=== PATIENT | male | born 1940 | race Caucasian/White ===

== ENCOUNTER 2017-05-18 11:22 | Observation (INO) ==
--- NOTE | 2017-05-18 08:46 | History & Physical Report ---
Date of Encounter: 05/18/17 Time of Encounter: 08:46 24 Hour HP Update - Instructions Instructions: If the History and Physical is less than 30 days old and was completed prior to A.M. admission and or procedure and has NOT been updated on calendar day of procedure please complete this update prior to performing procedure. - Update Patient reports changes in Medical Condition: No Changes in examination, assessment, or condition: No Changes in Medication: No Preop tests/diagnostics Reviewed: Yes Surgery Remains Indicated: Yes Consent for Planned Operative Procedure(s) Verified: Yes
[2017-05-18] MEDS ORDERED: Ringers Solution, Lactated 500 ML IVC SCH (12:00)
[2017-05-18 12:15] LABS: Basophils # 0.1 K/mcL (0.0-0.2); Basophils % 1.3 %; Eosinophils # 0.5 K/mcL (0.0-0.6); Eosinophils % 6.5 %; Hemoglobin 14.4 g/dL (12.9-16.9); Immature Granulocytes % 0.4 % (0-4); Lymphocytes # 2.4 K/mcL (0.6-4.6); Lymphocytes % 30.5 %; Mean Corpuscular HGB Conc 31.3 g/dL (31.6-35.5); Mean Corpuscular Volume 83.2 fL (83.0-100.0); Mean Platelet Volume 9.1 fL (9.4-12.4); Monocytes # 0.7 K/mcL (0.0-1.3); Monocytes % 8.1 %; Neutrophils # 4.3 K/mcL (1.6-8.9); Platelet Count 276 K/mcL (140-400); Red Blood Count 5.53 M/mcL (4.19-5.50); Red Cell Distribution Width 15.6 % (11.5-14.5); Segmented Neutrophils % 53.2 %
[2017-05-18 12:23] LABS: Prothrombin Time 11.1 Seconds (9.4-12.1)
[2017-05-18] MEDS ORDERED: Naloxone 0.4 MG/ML INJ IVP PRN (13:57)
[2017-05-18] MEDS ORDERED: *HR* HYDROcodone/Acet 5/325 mg TABLET PO PRN (14:52)
[2017-05-18] MEDS ORDERED: Acetaminophen 325 MG TABLET PO PRN (14:52)
--- NOTE | 2017-05-18 15:28 | Internal Med History&Physical ---
<Jennifer Padilla - Last Filed: 05/18/17 15:07> Date of Encounter: 05/18/17 Time of Encounter: 15:08 Assessment and Plan (1) Pneumothorax of right lung after biopsy Current visit: Yes Status: Acute Pt presents with iatragenic pneumothorax following lung biopsy by IR. Several attempts at needle decompression were unsuccessful, Chest tube placed and attached to atrium. Patient currently asymptomatic complaining only of back pain. Hypertensive (200 systolic) upon arrival to room without history of htn. Patient received 10mg hydralazine and BP responded, lowered to 170's systolic. Pulmonology consulted by IR, appreciate their recommendations with management of chest tube. Plan: -Continue with chest tube management per protocol, currently to continuous wall suction -Dressing managment at CT insertion site -AM labs -Vitals signs Q4hr -CXR in AM -hydralazine 10mg q6hr prn systolic BP >160 -DVT prophylaxis: SCDS -Regular diet -pulmonology consult (2) Lung nodule Current visit: Yes Status: Acute Irregular 2.5x1.7cm nodule vs opacity in the posterior basal segment of the RLL on LCS chest CT 05/03/17 Biopsy pathology pending (3) PVD (peripheral vascular disease) Current visit: Yes Status: Acute s/p left fem-pop bypass 2006, right femoral-tibial insitu bypass 08/01/15 (4) Hyperlipidemia Current visit: No Status: Chronic Continue statin Qualifiers: Hyperlipidemia type: unspecified Qualified Code(s): E78.5 - Hyperlipidemia , unspecified (5) BPH (benign prostatic hyperplasia) Current visit: Yes Status: Acute s/p greenlight procedure 10/07. Qualifiers: Lower urinary tract symptom presence: unspecified whether lower urinary tract symptoms present Qualified Code(s): N40.0 - Benign prostatic hyperplasia without lower urinary tract symptoms (6) S/P femoral-tibial bypass Current visit: No Status: Chronic (7) DVT prophylaxis Current visit: Yes Status: Acute SCDs Internal Medicine - H&P: HPI Chief complaint: Pneumothorax Admitted From: Direct Admit Plans for Post Hospital Care: Home History of present illness: Mr. Herrera is a 77 year old male with a past medical history of hyperlipidemia , PVD, BPH, squamous cell skin cancer and aortic stenosis with valve replacement (bovine) who was admitted to the hospitalist service secondary to iatragenic pneumothorax. The patient had a free lung cancer screening CT 05/03/17 , which demonstrated a new 2.5x1.7cm nodule vs opacity in the posterior basal segment of the RLL. He was referred to Dr. Johnson who sent him to IR for a nodule biopsy. The patient was in IR this morning when he developed a pneumothorax during the lung biopsy, which was unable to be resolved after several attempts and needle decompression. A chest tube was subsequently placed by IR. Pulmonology was consulted, who recommended admission to the hospitalist service with pulmonology consult. The patient states that he has been in good health with no recent illness. He notes some back pain since the procedure, and states he feels better if he sits straight up. He denies DOWLING, dizziness, visual changes, fever, chills, ear pain, sore throat, rhinorrea, cough, wheezing , sob, palpitations, cp, abd pain, n/v/d/c, numbness/tingling, rash, dysuria. He does have a history of smoking. He notes that he cut back in September (had been smoking up to 1.5 PPD) to about 1 cigarette daily. He does have a 55 pack year history. Past Med Surg Social Fam HX - Past Medical History Attestation: Yes The following information was validated with the patient. Source: patient, old records reviewed Medical history: hyperlipidemia, peripheral artery disease, valvular heart disease (aortic stenosis with replacement(bovine)), other (squamous skin cancer) Psychiatric history: no psych history - Past Surgical History Surgical History: heart valve replacement (Aortic (bovine) 2005), knee replacement (left 07/07), LE Bypass (left fem-pop 2006; right fem-tib insitu ), other (greenlight prostate 10/07, tonsilectomy) - Social History Smoking Status: Former smoker Smokeless Tobacco Status: No Alcohol use: none Drug use: none - Family History Mother Race: Family Member Ethnicity: Non- Living Status: Age at : 90 Hx Family Neurologic Disorders: Yes (dementia) Father Race: Family Member Ethnicity: Non- Living Status: Age at : 79 Hx Family Cardiac Disorders: Yes (CAD) Internal Medicine - H&P: Meds Atorvastatin Calcium [Lipitor] 20 mg PO HS 08/01/15 [History] Aspirin Enteric Coated [Aspirin EC] 325 mg PO DAILY #30 tablet. 08/02/15 [Rx] Clopidogrel [Plavix] 75 mg PO DAILY #30 tablet 08/02/15 [Rx] Docusate [Colace] 100 mg PO BID #30 capsule 08/02/15 [Rx] Hydrocodone/Acetaminophen [[place] 5-325 Tablet] 1 tab PO Q4H PRN #39 tab [Rx] 3 Allergy/AdvReac Type Severity Reaction Status Date / Time No Known Allergies Allergy Unverified 07/25/15 12:04 All Systems PM: A 10-system review of systems was performed and is negative for pertinent findings except as documented above in the HPI. - Constitutional Vitals: Temp Pulse Resp BP Pulse Ox 98.6 F 65 16 178/81 97 05/18/17 14:55 05/18/17 14:55 05/18/17 14:55 05/18/17 14:55 05/18/17 14:55 General appearance: Present: cooperative, A&O X 3, pleasant, no acute distress, answers questions appropriately - Head Head exam: Present: atraumatic, normocephalic - Neck Neck exam general surgery: Present: supple, trachea midline. Absent: lymphadenopathy - Respiratory Respiratory exam: Present: CTAB. Absent: accessory muscle use, rales, rhonchi, wheezes Additional comments: chest tube in place lower posterior chest, dressed, clean, dry - Cardiovascular Cardiovascular exam: Present: RRR, +S1, +S2. Absent: diastolic murmur, gallop, rubs, systolic murmur - GI/Abdominal GI/Abdominal exam: Present: normal bowel sounds, soft, no peritoneal signs. Absent: distended, tenderness - Extremities Exam Extremities exam: Present: normal capillary refill, warm, radial pulses palpable and symmetrical. Absent: calf tenderness, cyanotic, pedal edema - Back Exam Back exam: Present: tenderness (b/l lower back and L4/L5). Absent: CVA tenderness (L), CVA tenderness (R) - Neurological Exam Neurological exam: Present: CN II-XII intact, oriented X3, no focal deficits. Absent: pronater drift, facial droop, speech deficit - Psychiatric Psychiatric exam: Present: normal affect, normal mood - Skin Skin exam: Present: dry, intact, normal color, warm. Absent: cyanosis, erythema , rash Internal Med - H&P Results - Labs CBC & Chem 7: 05/18/17 11:49 Labs: Short CBC 05/18/17 Range/Units 11:49 WBC 8.0 (4.3-11.1) K/mcL Hgb 14.4 (12.9-16.9) g/dL Hct 46.0 (37.5-50.1) % Plt Count 276 (140-400) K/mcL Neutrophils # 4.3 (1.6-8.9) K/mcL - Impressions ITS Impressions Lung Biopsy CT 05/18/17 00:00 IMPRESSION: Successful CT guided core biopsy right lung mass. D/ / Joey Sanchez MD / Joey Sanchez MD Interpreting Provider: Joey Sanchez MD Needle Aspiration CT 05/18/17 00:00 IMPRESSION: Successful CT guided placement of a right chest tube D/ / Joey Sanchez MD / Joey Sanchez MD Interpreting Provider: Joey Sanchez MD <Rachele Lynch - Last Filed: 05/18/17 17:38> Date of Encounter: 05/18/17 Internal Medicine - H&P: HPI History of present illness: Mr. Herrera is a 77 year old male All Systems PM: A 10-system review of systems was performed and is negative for pertinent findings except as documented above in the HPI. - Constitutional Vitals: Temp Pulse Resp BP Pulse Ox 98.6 F 65 16 178/81 97 05/18/17 14:55 05/18/17 14:55 05/18/17 14:55 05/18/17 14:55 05/18/17 14:55 Internal Med - H&P Results - Labs CBC & Chem 7: 05/18/17 11:49 05/18/17 16:15 Labs: Short CBC 05/18/17 Range/Units 11:49 WBC 8.0 (4.3-11.1) K/mcL Hgb 14.4 (12.9-16.9) g/dL Hct 46.0 (37.5-50.1) % Plt Count 276 (140-400) K/mcL Neutrophils # 4.3 (1.6-8.9) K/mcL BMP 05/18/17 16:15 Sodium 133 L Potassium 4.1 Chloride 102 Carbon Dioxide 25 BUN 9 Creatinine 0.96 Glucose 83 Calcium 9.4 - Impressions ITS Impressions Lung Biopsy CT 05/18/17 00:00 IMPRESSION: Successful CT guided core biopsy right lung mass. D/ / Joey Sanchez MD / Joey Sanchez MD Interpreting Provider: Joey Sanchez MD Needle Aspiration CT 05/18/17 00:00 IMPRESSION: Successful CT guided placement of a right chest tube D/ / Joey Sanchez MD / Joey Sanchez MD Interpreting Provider: Joey Sanchez MD - Attending Attestation Pt seen and examined at bedside. Resting comfortably in bed. Denies any discomfort at this time. Admitted for new onset pneumothorax requiring chest tube placement. Case was discussed with the resident physician Dr. Vicky Padilla, I agree with her documented findings, assessment, and plan.
--- NOTE | 2017-05-18 16:08 | Pulmonology Consult Note ---
Date of Encounter: 05/18/17 Time of Encounter: 16:08 Assessment and Plan (1) Pneumothorax of right lung after biopsy Current Visit: Yes Status: Acute Assessment was chest tube placement by interventional radiology currently without any relief I would keep to suction overnight will come and evaluate in the morning after repeat chest x-ray likely clamp after that and removal later in the morning (2) Tobacco abuse counseling Current Visit: Yes Status: Acute I had a 5-7 minute discussion with the patient about smoking cessation. Problems with continued smoking including respiratory, cardiovascular and oncological problems were discussed. Advice on smoking cessation was reiterated including methods of quitting and different medicines and support systems available for smoking cessation was discussed. (3) Lung nodule Current Visit: Yes Status: Acute This is concerning for primary lung malignancy we will follow up on biopsy results likely as outpatient basis of note he does have a PET CT scheduled tomorrow around 2:00pm he should be able to make this based upon my initial assessment History of Present Illness Consult date: 05/18/17 Requesting physician: [place] Reason for consult: pneumothorax Chief complaint: Shortness of breath History of present illness: This is 77-year-old gentleman with a past medical history of tobacco abuse and peripheral vascular disease who was brought to the interventional radiology suite today for CT-guided transthoracic biopsy. He has a 2.5 cm right lower lobe lesion that is concerning for primary lung malignancy giving underlying smoking history and age. Procedure was unfortunate complicated by a iatrogenic pneumothorax status post smallbore chest tube placement. In speaking with the patient at the bedside he is in no distress. He says he denies shortness of breath chest pain cough fever or chills. Of note he is to have a PET/CT scan performed tomorrow for further evaluation/staging of this potential neoplastic lesion. He started smoking at age 18 smoked about a pack a day and he fortunately quit almost completely over this year he says he smokes 1 cigarette or so a week. I reminded him the importance of remaining completely tobacco free. He denies dyspnea on exertion with activities of daily living. Does not use any inhaler therapy. No personal or family history of lung malignancy. 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 No exotic pets or sick contacts or recent travel Past Med Surg Social Fam HX - Past Medical History Medical history: hyperlipidemia, peripheral artery disease, valvular heart disease (aortic stenosis with replacement(bovine)), other (squamous skin cancer) Psychiatric history: no psych history - Past Surgical History Surgical History: heart valve replacement (Aortic (bovine) 2005), knee replacement (left 07/07), LE Bypass (left fem-pop 2006; right fem-tib insitu ), other (greenlight prostate 10/07, tonsilectomy) - Social History Smoking Status: Former smoker Smokeless Tobacco Status: No Alcohol use: none Drug use: none - Family History Mother Race: Family Member Ethnicity: Non- Living Status: Age at : 90 Hx Family Neurologic Disorders: Yes (dementia) Father Race: Family Member Ethnicity: Non- Living Status: Age at : 79 Hx Family Cardiac Disorders: Yes (CAD) Medications and Allergies Atorvastatin Calcium [Lipitor] 20 mg PO HS 08/01/15 [History] Aspirin Enteric Coated [Aspirin EC] 325 mg PO DAILY #30 tablet. 08/02/15 [Rx] Clopidogrel [Plavix] 75 mg PO DAILY #30 tablet 08/02/15 [Rx] Docusate [Colace] 100 mg PO BID #30 capsule 08/02/15 [Rx] Hydrocodone/Acetaminophen [[place] 5-325 Tablet] 1 tab PO Q4H PRN #39 tab [Rx] 3 Allergy/AdvReac Type Severity Reaction Status Date / Time No Known Allergies Allergy Unverified 07/25/15 12:04 All Systems: A 10-system review of systems was performed and is negative for pertinent findings except as documented above in the HPI. Physical Examination Vital Signs: Vital Signs, Last 4 Hours Temp Pulse Resp BP Pulse Ox 05/18/17 14:55 98.6 F 65 16 178/81 97 05/18/17 14:09 97.8 F 65 17 205/85 98 05/18/17 13:00 57 12 168/86 100 General appearance: no acute distress Eyes: nonicteric ENT: oropharynx moist Neck: supple Auscultation: right: clear, bilateral: other (Left chest tube in satisfactory position dressing clean dry and intact no air leak noted) Cardiovascular: regular rate and rhythm Gastrointestinal: normoactive bowel sounds Integumentary: normal Extremities: no cyanosis, no edema, no clubbing Musculoskeletal: no deformities normal mental status, non-focal exam mood appropriate Results - Laboratory Findings CBC and BMP: 05/18/17 11:49 PT/INR, D-dimer PT 11.1 Seconds (9.4-12.1) 05/18/17 11:49 Abnormal lab findings: Abnormal lab results RBC 5.53 M/mcL (4.19-5.50) H 05/18/17 11:49 MCH 26.0 pg (28.0-33.3) L 05/18/17 11:49 MCHC 31.3 g/dL (31.6-35.5) L 05/18/17 11:49 RDW 15.6 % (11.5-14.5) H 05/18/17 11:49 MPV 9.1 fL (9.4-12.4) L 05/18/17 11:49 - Diagnostic Findings Chest x-ray: report reviewed, image reviewed CT scan - chest: report reviewed, image reviewed - Clinical Findings Intake & Output: Intake & Output 05/18/17 05/18/17 05/18/17 07:59 15:59 23:59 Intake Total 0 / 0 Balance 0 / 0 Weight 72.575 kg Consult Discharge Plan - Plan Referrals: NONE,PCP [Primary Care Provider] -
[2017-05-18 16:53] LABS: BUN/Creatinine Ratio 9 (6-26); Blood Urea Nitrogen 9 mg/dL (8-26); Carbon Dioxide 25 mEq/L (19-29); Chloride 102 mEq/L (98-109); Potassium 4.1 mEq/L (3.5-4.5); Sodium 133 mEq/L (136-145); eGFR For African Americans > 60 (> 60)
[2017-05-18 16:54] LABS: Calcium 9.4 mg/dL (8.6-10.8); Glucose 83 mg/dL (70-99); Osmolality,Calculated 274 (280-300); eGFR For Non-African Americans > 60 (> 60)
[2017-05-19 05:45] LABS: Hematocrit 40.2 % (37.5-50.1); Mean Corpuscular HGB Conc 32.3 g/dL (31.6-35.5); Mean Corpuscular Hemoglobin 26.4 pg (28.0-33.3); Mean Corpuscular Volume 81.5 fL (83.0-100.0); Mean Platelet Volume 9.4 fL (9.4-12.4); Platelet Count 225 K/mcL (140-400); Red Blood Count 4.93 M/mcL (4.19-5.50); Red Cell Distribution Width 15.7 % (11.5-14.5)
[2017-05-19 06:02] LABS: BUN/Creatinine Ratio 10 (6-26); Blood Urea Nitrogen 10 mg/dL (8-26); Calcium 8.7 mg/dL (8.6-10.8); Chloride 104 mEq/L (98-109); Glucose 73 mg/dL (70-99); Osmolality,Calculated 276 (280-300); Potassium 4.3 mEq/L (3.5-4.5); Sodium 134 mEq/L (136-145); eGFR For African Americans > 60 (> 60); eGFR For Non-African Americans > 60 (> 60)
[2017-05-19 06:26] LABS: Carbon Dioxide 23 mEq/L (19-29)
--- NOTE | 2017-05-19 07:25 | Event Note ---
Date of Encounter: 05/19/17 Time of Encounter: 07:22 I came to evaluate the patient after repeat imaging for f/u of chest tube placement for PTx. Order was given overnight to clamp the chest tube by radiology per RN at [facility]. It appears that there are multiple physicians managing chest tube on this patient and given interventional radiology has placed a chest tube and given additional orders for this management pulmonary will sign off to avoid confusion please reconsult if input on mngt of chest tube requested
--- NOTE | 2017-05-19 10:16 | Discharge Summary ---
<Rex Sloan Last Filed: 05/19/17 16:19> Date of Encounter: 05/19/17 Time of Encounter: 10:09 - Discharge Diagnosis (1) Pneumothorax of right lung after biopsy Priority: Primary Status: Acute (2) Lung nodule Priority: Secondary Status: Acute (3) Tobacco abuse counseling Priority: Secondary Status: Acute - Discharge Medications Home Medications: Atorvastatin Calcium [Lipitor] 20 mg PO HS 05/18/17 [History] Fluticasone Propionate Nasal [Flonase] 2 spr NS DAILY 05/18/17 [History] Ipratropium [place] 1 spr NS DAILY 05/18/17 [History] Allergies/Adverse Reactions: 3 Allergy/AdvReac Type Severity Reaction Status Date / Time No Known Allergies Allergy Unverified 07/25/15 12:04 Procedures/tests Complete & Pending: Procedures Performed prior 72 hours Category Date Time Status CT biopsy lung RT [CT] Routine Cat Scan 05/18/[address] guided asp with tube [CT] Routine Cat Scan 05/18/17 Completed Date of admission: 05/18/17 14:20 Primary care physician: PCP NONE Consults: 05/18/17 15:02 Consult to Physician [CONS] Routine Consulting Provider: Shamar Zendejas Reason for Consult: Pneumothorax, Chest tube in place, contacted by IR Time Notified: 15:03 Call Completed: Yes Discharging clinician: Rex Sloan Anticipated date of discharge: 05/19/17 - Patient Status Disposition: Home, Self-Care Functional capacity at discharge: independent ambulation Overall status at discharge: patient is back to baseline - Discharge Instructions Instructions: Traumatic Pneumothorax (DC), How to Stop Smoking (DC) Follow Up With: NONE,PCP [Primary Care Provider] - 05/25/17 10:00 am (Please follow up at [facility] with Saavedra. [phone]. ) Additional Instructions: Go to your PET scan this afternoon - it is very important Follow-up with your primary care provider Return to the hospital if your breathing worsens or symptoms return - Diet and Activity Activity: increase activity as tolerated Diet: advance to your usual diet Interval History: Patient seen and examined. Reports he is feeling well with no complaints. Denies chest pain, dyspnea, cough, N/V/D, dysuria, or leg pain/swelling. Hospital course: Mr. Herrera is a 77 year old male with PMH of tobacco abuse and peripheral vascular disease who was seen by interventional radiology on 05/18/[address]- guided transthoracic biopsy. He has a 2.5 cm right lower lobe lesion that is concerning for primary lung malignancy giving underlying smoking history and age. Procedure was unfortunate complicated by an iatrogenic pneumothorax and then a smallbore chest tube placement was placed. He was monitored overnight and repeat chest x-rays were conducted the following morning showing resolution of the pneumothorax. The chest tube was removed and the patient was discharged in time to make it to his appointment for his out-patient PET CT scan. - Time Spent with Patient Total time spent providing and/or coordinating discharge services: Greater than 30 minutes - Constitutional Vitals: Temp Pulse Resp BP Pulse Ox 97.9 F 52 14 137/84 99 05/19/17 07:39 05/19/17 07:39 05/19/17 07:39 05/19/17 07:39 05/19/17 07:39 General appearance: Present: cooperative, A&O X 3, pleasant, no acute distress, answers questions appropriately - Head Head exam: Present: atraumatic, normocephalic - Eye Eye exam: Present: conjuntiva pink, sclera anicteric - ENT ENT exam: Present: mucous membranes moist - Respiratory Respiratory exam: Present: CTAB. Absent: rales, rhonchi, wheezes - Cardiovascular Cardiovascular exam: Present: RRR, +S1, +S2. Absent: diastolic murmur, systolic murmur - GI/Abdominal GI/Abdominal exam: Present: distended, normal bowel sounds, soft. Absent: rigid , tenderness - Extremities Exam Extremities exam: Present: warm, radial pulses palpable and symmetrical. Absent : pedal edema, tenderness - Neurological Exam Neurological exam: Present: alert, CN II-XII intact, oriented X3, no focal deficits - Skin Skin exam: Present: dry, intact <Vibha,Toy P - Last Filed: 05/19/17 17:38> Date of Encounter: 05/19/17 Procedures/tests Complete & Pending: Procedures Performed prior 72 hours Category Date Time Status CT biopsy lung RT [CT] Routine Cat Scan 05/18/[address] guided asp with tube [CT] Routine Cat Scan 05/18/17 Completed Date of admission: 05/18/17 14:20 Primary care physician: PCP NONE Consults: 05/18/17 15:02 Consult to Physician [CONS] Routine Consulting Provider: Shamar Zendejas Reason for Consult: Pneumothorax, Chest tube in place, contacted by IR Time Notified: 15:03 Call Completed: Yes Hospital course: Mr. Herrera is a 77 year old male - Time Spent with Patient Total time spent providing and/or coordinating discharge services: - Constitutional Vitals: Temp Pulse Resp BP Pulse Ox 97.6 F 61 14 154/79 100 05/19/17 11:01 05/19/17 11:01 05/19/17 11:01 05/19/17 11:01 05/19/17 11:01 - Attending Attestation I examined this patient and my medical decision-making was reviewed with the Resident Physician. I agree with the documented findings, disposition and treatment plan as described except to the extent set forth below. Follow-up with PCP in next 1-2 weeks
[2017-05-19 11:02] VITALS: BP 154/79
== END 2017-05-19 13:15 | disposition home or self-care (01) ==
LOC: RAD 11:22 → 2ANU 11:22
PROVIDERS: ADMIT Internal Medicine; ATTEND Internal Medicine